=== PATIENT | male | born 1935 | race Caucasian/White ===

== ENCOUNTER → 2017-01-30 | Outpatient (REF) | payer MEDICARE ==
[~2017-01-30] MED LIST: ASPI81TA85 PO; MULTTAB12 PO
== END ==
LOC: M SFHCCLAY 09:30
PROVIDERS: ATTEND Family Medicine
DX: Z95.5 Presence of coronary angioplasty implant and graft (principal); C88.0 Waldenstrom macroglobulinemia; Z85.46 Personal history of malignant neoplasm of prostate; I34.0 Nonrheumatic mitral (valve) insufficiency; Z53.9 Procedure and treatment not carried out, unspecified reason

== ENCOUNTER → 2017-04-20 | Outpatient (REF) | payer MEDICARE ==
[~2017-04-20] MED LIST changes: +AMIO200T; +AMIO200T PO; +AMOX875T PO; +ATOR40TA75; +ATOR40TA75 PO; +CEPH500C PO; +CLOP75TA2; +FURO40TA2; +FURO40TA2 PO; +KEFL500C17; +PLAV1TAB2 PO; +SPIR25TA2; +SPIR25TA2 PO; +VITA100066 PO; +VITMTA PO; +XARE15TA; +XARE15TA PO
== END ==
LOC: M SFHCCLAY 10:33
PROVIDERS: ATTEND Family Medicine
DX: C85.19 Unspecified B-cell lymphoma, extranodal and solid organ sites (principal); I35.0 Nonrheumatic aortic (valve) stenosis; K64.4 Residual hemorrhoidal skin tags; I48.0 Paroxysmal atrial fibrillation; Z85.46 Personal history of malignant neoplasm of prostate
CPT/HCPCS: 82550; 84153; G0463

== ENCOUNTER 2017-06-01 15:37 | Inpatient (IN) | payer MEDICARE ==
[~2017-06-01] VITALS: Ht 177.8 cm; Wt 70.3 kg
[~2017-06-01 15:37] MED LIST changes: -AMIO200T; -AMIO200T PO; -AMOX875T PO; -ATOR40TA75; -ATOR40TA75 PO; -CEPH500C PO; -CLOP75TA2; -FURO40TA2; -FURO40TA2 PO; -KEFL500C17; -PLAV1TAB2 PO; -SPIR25TA2; -SPIR25TA2 PO; -VITA100066 PO; -VITMTA PO; -XARE15TA; -XARE15TA PO
[2017-06-01] MEDS ORDERED: SPIR25TA2 (15:57)
[2017-06-01] MEDS ORDERED: AMIO200T (15:57)
[2017-06-01] MEDS ORDERED: FURO40TA2 (15:57)
[2017-06-01] MEDS ORDERED: CLOP75TA2 (15:57)
[2017-06-01] MEDS ORDERED: XARE15TA (15:57)
[2017-06-01] MEDS ORDERED: ATOR40TA75 (15:57)
[2017-06-01] MEDS ORDERED: KEFL500C17 (15:57)
[2017-06-01] MEDS ORDERED: SODIUM CHLORIDE 0.9% INJ 10 ML SYR IV PRN (18:15)
--- NOTE | 2017-06-01 19:02 | REP ---
REASON: Swelling. COMPARISON: None. There are multiple hammertoe deformities. There is a large retrocalcaneal heel spur. The bones are demineralized. Degenerative change are seen throughout the foot. There is no evidence of an acute fracture. IMPRESSION: Chronic changes. Signed by Pablo Marcos DO 06/01/2017 07:18 P
[2017-06-01 19:03] LABS: BASO % 0.3 % (0.0-1.0); EOS # 0.1 10^3/uL (0.0-0.50); EOS % 0.7 % (0.0-3.0); IMMATURE GRANULOCYTE % 0.4 % (0-0); LYMPH # 0.7 10^3/uL (1.5-4.5); MEAN CORPUSCULAR HEMOGLOBIN 32.9 pg (27.0-33.0); MEAN CORPUSCULAR HGB CONC 35.8 g/dl (32.0-36.5); MEAN CORPUSCULAR VOLUME 91.8 fl (80.0-96.0); MONO # 0.8 10^3/uL (0.0-0.8); MONO % 7.7 % (0.0-5.0); NEUTROPHILS # 8.5 10^3/uL (1.8-7.7); NEUTROPHILS % 83.9 % (36.0-66.0); PLATELET COUNT, AUTOMATED 196 10^3/uL (150-450); RED CELL DISTRIBUTION WIDTH 12.7 % (11.5-14.5); WHITE BLOOD COUNT 10.1 10^3/uL (4.0-10.0)
[2017-06-01 19:31] LABS: ERYTHROCYTE SEDIMENTATION RATE 56 mm/hr (0-20)
[2017-06-01 19:49] LABS: ANION GAP 10 MEQ/L (8-16); BLOOD UREA NITROGEN 22 MG/DL (7-18); CALCIUM LEVEL 7.6 MG/DL (8.8-10.2); CARBON DIOXIDE LEVEL 22 MEQ/L (21-32); CHLORIDE LEVEL 106 MEQ/L (98-107); GLOMERULAR FILTRATION RATE > 60.0 (>35); GLUCOSE, FASTING 110 MG/DL (83-110); POTASSIUM SERUM 4.2 MEQ/L (3.5-5.1); SODIUM LEVEL 138 MEQ/L (136-145); URIC ACID 5.4 MG/DL (3.5-7.2)
[2017-06-01] MEDS ORDERED: VITA100066 PO (20:14)
[2017-06-01] MEDS ORDERED: SPIR25TA2 PO (20:14)
[2017-06-01] MEDS ORDERED: XARE15TA PO (20:14)
[2017-06-01] MEDS ORDERED: ATOR40TA75 PO (20:14)
[2017-06-01] MEDS ORDERED: FURO40TA2 PO (20:14)
[2017-06-01] MEDS ORDERED: AMIO200T PO (20:14)
[2017-06-01] MEDS ORDERED: VITMTA PO (20:14)
[2017-06-01] MEDS ORDERED: CEPH500C PO (20:14)
[2017-06-01] MEDS ORDERED: PLAV1TAB2 PO (20:14)
[2017-06-01] MEDS ORDERED: PIPERACILLIN/TAZOBACTAM SOD 3.375 GM in D5W 50 ML IV ONE (20:15)
[2017-06-01] MEDS ORDERED: VANCOMYCIN HCL 1,000 MG, VIAL MATE ADAPTER 1 EACH in D5W 250 ML IV ONE (20:15)
[2017-06-01] MEDS: HEPARIN SOD (PORCINE) 5000 UNITS/ML VIAL SC SCH (21:00)
[2017-06-01] MEDS ORDERED: PERCOCET 5MG/325MG TAB PO PRN (22:15)
[2017-06-01] MEDS ORDERED: PERCOCET 5MG/325MG TAB PO SCH (22:30)
[2017-06-01] MEDS ORDERED: VANCOMYCIN HCL IV SCH (22:45)
[2017-06-01] MEDS ORDERED: D5W IV SCH (22:45)
--- NOTE | 2017-06-01 23:06 | HPEPDOC ---
General Date of Admission 06-01-17 Chief Complaint The patient is a 82-year-old male admitted with a reason for visit of Skin Issue. 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 The pt states he was playing tennis a week ago and that one day after this, he noted some pain and swelling in his left foot, thinking he may have "twisted it" he soaked it in epsom salt and tried to minimize weight on the foot. Unfortunately the pain progressed and his foot progressively became hot and red, he was instructed to obtain an MRI from his physicians office and the results were negative for Osteomyelitis, he was given Keflex. The pain, progressive swelling and redness continued to worsen and thus he presented to the ED. He denies hx of fever, muscle ache or chills, no night sweats, abdominal pain, n/v, diarrhea/constipation nor blood in stool or urine, denies travel outside of the country recently and no recent sick contacts. He has no history of trauma to his left foot. Home Medications Scheduled Amiodarone HCl (Amiodarone HCl) 200 Mg Tab, 200 MG PO DAILY, (Reported) Atorvastatin Calcium (Atorvastatin Calcium) 40 Mg Tab, 40 MG PO QHS, (Reported) Cephalexin Monohydrate (Cephalexin) 500 Mg Cap, 500 MG PO QID, (Reported) FILLED 05/27/17 FOR 10 DAYS Cholecalciferol (Vitamin D) 1,000 Unit Tab, 1,000 UNIT PO DAILY, (Reported) Clopidogrel Bisulfate (Plavix) 75 Mg Tab, 75 MG PO DAILY, (Reported) Furosemide (Furosemide) 40 Mg Tab, 40 MG PO DAILY, (Reported) Multivitamins *[facility] STOCKED* (Thera M Plus *[facility] STOCKED*) 1 Tab Tab, 1 TAB PO DAILY, (Reported) Rivaroxaban (Xarelto) 15 Mg Tab, 15 MG PO QPM, (Reported) Spironolactone (Spironolactone) 25 Mg Tab, 12.5 MG PO BID, (Reported) Allergies Coded Allergies: No Known Allergies (Verified , 06/01/17) Past Medical History Medical History hx MV repair 2 months ago hx prostate ca. w/ mets to spine hx waldenstroms macroglobulinemia w/ mets to brain s/p chemo htn hyperlipidemia Surgical History MV repair Family History Significant Family History: No pertinent family hx Social History * Smoker: Denies Alcohol: Denies Drugs: denies Psychosocial History: No pertinent psych hx Review of Symptoms Constitutional: Reports: Malaise, Denies: Chills, Fever, Night Sweats, Weakness, Fatigue Eyes: Denies: Pain, Vision change, Conjunctivae inflammation Skin: Reports: Other (red, hot and swollen left foot), Denies: Rash, Lesions Pulmonary: Denies: Dyspnea, Cough Cardiovascular: Denies: Chest Pain, Palpitations Gastrointestinal: Denies: Nausea, Vomiting, Abdominal Pain, Diarrhea, Constipation, Melena, Hematochezia Genitourinary: Denies: Dysuria, Frequency Musculoskeletal: Reports: Foot Pain (left foot pain when he tries to walk) Neurological: Denies: Weakness, Numbness Psych: Reports: Mood Normal, Memory Issues Physical Examination General Exam: Positive: Cooperative, Mild Distress Eye Exam: Positive: Conjunctiva & lids normal, EOMI, Negative: Sclera icteric, Ptosis ENT Exam: Positive: Atraumatic Neck Exam: Positive: Supple Chest Exam: Positive: Clear to auscultation, Normal air movement, Negative: Rales, Rhonchi, Wheezing, Diminished Heart Exam: Positive: Rate Normal, Normal S1, Normal S2, Negative: Gallops, Murmurs, Rubs Abdomen Exam: Positive: Normal bowel sounds, Soft, Negative: Tenderness, Hepatospenomegaly, Mass Extremity Exam: Positive: Edema (+1 left foot), Normal pulses (b/l LE dorsalis pedis), Tenderness (left dorsum foot), Swelling (left dorsum foot), Negative: Clubbing, Cyanosis Skin Exam: Negative: Nl turgor and temperature (hot swollen dorsum left foot), Breakdown (no abrasion or cuts on left foot, no bruising or sign of trauma) Neuro Exam: Positive: Normal Speech Vital Signs Vital Signs Date Time Temp Pulse Resp B/P (MAP) Pulse Ox O2 Delivery O2 Flow Rate FiO2 10/6/17 19:33 06/01/17 15:37 98.0 69 16 100 Room Air Laboratory Data Labs 24H Laboratory Tests 2 06/01/17 18:44: Immature Granulocyte % (Auto) 0.4H, White Blood Count 10.1H, Red Blood Count 3.68L, Hemoglobin 12.1L, Hematocrit 33.8L, Mean Corpuscular Volume 91.8, Mean Corpuscular Hemoglobin 32.9, Mean Corpuscular Hemoglobin Concent 35.8, Red Cell Distribution Width 12.7, Platelet Count 196, Neutrophils (%) (Auto) 83.9H, Lymphocytes (%) (Auto) 7.0L, Monocytes (%) (Auto) 7.7H, Eosinophils (%) (Auto) 0.7, Basophils (%) (Auto) 0.3, Neutrophils # (Auto) 8.5H, Lymphocytes # (Auto) 0.7L, Monocytes # (Auto) 0.8, Eosinophils # (Auto) 0.1, Basophils # (Auto) 0.0, Immature Granulocyte # (Auto) 0.0, Nucleated Red Blood Cells % (auto) 0.0, Erythrocyte Sedimentation Rate 56H, Anion Gap 10, Glomerular Filtration Rate > 60.0, Uric Acid 5.4, Blood Urea Nitrogen 22H, Creatinine 1.10, Sodium Level 138 , Potassium Level 4.2, Chloride Level 106, Carbon Dioxide Level 22, Calcium Level 7.6L, C-Reactive Protein, Quantitative 6.94H CBC/BMP Laboratory Tests 06/01/17 18:44 Red Blood Count 3.68 L, Mean Corpuscular Volume 91.8, Mean Corpuscular Hemoglobin 32.9, Mean Corpuscular Hemoglobin Concent 35.8, Red Cell Distribution Width 12.7, Neutrophils (%) (Auto) 83.9 H, Lymphocytes (%) (Auto) 7.0 L, Monocytes (%) (Auto) 7.7 H, Eosinophils (%) (Auto) 0.7, Basophils (%) ( Auto) 0.3, Neutrophils # (Auto) 8.5 H, Lymphocytes # (Auto) 0.7 L, Monocytes # ( Auto) 0.8, Eosinophils # (Auto) 0.1, Basophils # (Auto) 0.0, Calcium Level 7.6 L Microbiology Microbiology 06/01/17 Blood Culture, Received Pending 06/01/17 Blood Culture, Received Pending Problems (1) Cellulitis of foot Status: Acute Response to Treatment: Stable Problem Text: will repeat MRI of left foot wbc 10.1 afebrile blood cx pending pt received vanco and zosyn in ED, will c/w inpt. CRP 6.94 pain control percocet PT ordered to eval and treat (2) Hx of mitral valve repair Status: Chronic Response to Treatment: Stable Problem Text: c/w xarelto and plavix home meds (3) Hyperlipidemia Status: Chronic Response to Treatment: Stable Problem Text: c/w home meds (4) DVT prophylaxis Status: Acute Response to Treatment: Stable Problem Text: pt receiving xarelto plavix Plan / VTE VTE Prophylaxis Ordered?: Yes GME ATTESTATION GME ATTESTATION My preceptor for this patient encounter was physically present in the building during the encounter and was fully available. As needed, all aspects of the patient interview, examination, medical decision making process, and medical care plan development were reviewed and approved by the preceptor. Preceptor is aware and concurs with the plan as stated in the body of this note and will attest to such by his/her cosignature. RACHEL PITTMAN DO Jun 01, 2017 23:06
[2017-06-02 01:40] VITALS: BP 119/66
[2017-06-02] MEDS: PIPERACILLIN/TAZOBACTAM SOD 3.375 GM in D5W 50 ML IV SCH ×4 (02:07→21:06)
[2017-06-02] MEDS: SPIRONOLACTONE 12.5MG PER 1/2 TABLET PO SCH ×3 (02:08→21:07)
[2017-06-02] MEDS: ATORVASTATIN 20 MG TAB PO SCH ×2 (02:08→21:07)
[2017-06-02] MEDS: RIVAROXABAN 15 MG TAB (XARELTO) PO SCH ×2 (02:08→21:08)
--- NOTE | 2017-06-02 05:12 | PHACANCOPD ---
PHARMACY VANCOMYCIN DOSING Pt Demographics Demographics Patient Age:82 , Weight:70.300 , Gender: male Adjusted Body Weight Date: 06/02/17, Adjusted Body Weight: [68.2] KgACTUAL WEIGHT Vancomycin Vancomycin indication: CELLULITIS Vancomycin Target Ranges: 10-20 mcg/ml Vancomycin Load Y/N: No Load Dose Date Time Vancomycin Load Dose: Date: Time: Vancomycin Dose Date: 06/02/17. Current Vancomycin Dose: [1 GM@21,THEN Q24@10] Intermittent Dosing?: No Labs Labs Laboratory Tests 06/01/17 18:44 Red Blood Count 3.68 L, Mean Corpuscular Volume 91.8, Mean Corpuscular Hemoglobin 32.9, Mean Corpuscular Hemoglobin Concent 35.8, Red Cell Distribution Width 12.7, Neutrophils (%) (Auto) 83.9 H, Lymphocytes (%) (Auto) 7.0 L, Monocytes (%) (Auto) 7.7 H, Eosinophils (%) (Auto) 0.7, Basophils (%) ( Auto) 0.3, Neutrophils # (Auto) 8.5 H, Lymphocytes # (Auto) 0.7 L, Monocytes # ( Auto) 0.8, Eosinophils # (Auto) 0.1, Basophils # (Auto) 0.0, Calcium Level 7.6 L Micro Microbiology 06/01/17 Blood Culture, Received Pending 06/01/17 Blood Culture, Received Pending Creatinine Clearance Date:06/02/17. Creatinine Clearance: [49.9].CALCULATED Pending Labs VENCOMYCIN TROUGH DUE 06/03@0900 Assessment and Plan Maintaining Current Dose?: Yes Reason for dose change: No Dose Change Pharmacist Note Pharmacist Note Date: 06/02/17. Pharmacist note:82YOM NKDA,TREATING CELLULITIS WITH PIP/TAZO 3.375GM IV Q6H AND VANCOMYCIN PER PHARMACY CONSULT.SCR:1.1,CRCL=49.9(CALCULATED) .RECEIVED VANCO 1 GRAM IN ED@2100-WILL BEGIN REGIMEN OF 1 GRAM IV [id number] @ 1000.FIRST TROUGH SCHEDULED FOR 06/03@0900.WILL CONTINUE TO FOLLOW LEVELS AND LABS.+ [facility] Jun 02, 2017 05:12
[2017-06-02 06:00] VITALS: BP 111/63
[2017-06-02 07:06] LABS: BASO % 0.2 % (0.0-1.0); EOS # 0.1 10^3/uL (0.0-0.50); EOS % 1.5 % (0.0-3.0); IMMATURE GRANULOCYTE % 0.4 % (0-0); LYMPH # 0.6 10^3/uL (1.5-4.5); LYMPH % 7.2 % (24.0-44.0); MEAN CORPUSCULAR HEMOGLOBIN 31.8 pg (27.0-33.0); MEAN CORPUSCULAR HGB CONC 35.1 g/dl (32.0-36.5); MEAN CORPUSCULAR VOLUME 90.6 fl (80.0-96.0); MONO # 0.7 10^3/uL (0.0-0.8); MONO % 8.5 % (0.0-5.0); NEUTROPHILS # 6.7 10^3/uL (1.8-7.7); NEUTROPHILS % 82.2 % (36.0-66.0); PLATELET COUNT, AUTOMATED 181 10^3/uL (150-450); RED CELL DISTRIBUTION WIDTH 12.6 % (11.5-14.5); WHITE BLOOD COUNT 8.1 10^3/uL (4.0-10.0)
[2017-06-02 07:45] LABS: ANION GAP 8 MEQ/L (8-16); BLOOD UREA NITROGEN 20 MG/DL (7-18); CALCIUM LEVEL 7.7 MG/DL (8.8-10.2); CARBON DIOXIDE LEVEL 24 MEQ/L (21-32); CHLORIDE LEVEL 106 MEQ/L (98-107); CREATININE FOR GFR 0.98 MG/DL (0.70-1.30); GLOMERULAR FILTRATION RATE > 60.0 (>35); GLUCOSE, FASTING 98 MG/DL (83-110); POTASSIUM SERUM 3.7 MEQ/L (3.5-5.1); SODIUM LEVEL 138 MEQ/L (136-145)
[2017-06-02] MEDS: HEPARIN SOD (PORCINE) 5000 UNITS/ML VIAL SC SCH ×2 (09:00→21:00)
[2017-06-02] MEDS ORDERED: PROHANCE 279.3MG/ML 15ML VIAL (A9576) As Ordered ONE (09:49)
[2017-06-02] MEDS: VANCOMYCIN HCL 1,000 MG, VIAL MATE ADAPTER 1 EACH in D5W 250 ML IV SCH (11:47)
[2017-06-02] MEDS: FUROSEMIDE 40 MG TAB PO SCH (11:49)
[2017-06-02] MEDS: CLOPIDOGREL 75 MG TAB PO SCH (11:49)
[2017-06-02] MEDS: MULTIVITAMINS/MINERALS THERAP 1 TAB PO SCH (11:49)
[2017-06-02] MEDS: AMIODARONE 200 MG TAB (PACERONE) PO SCH (11:49)
[2017-06-02 14:00] VITALS: BP 119/59
--- NOTE | 2017-06-02 14:47 | REP ---
LEFT FOOT MRI: REASON: Assess for osteomyelitis. The patient has swelling. There are no priors for comparison. Gadolinium utilized: Undisclosed. There is diffuse T1 and T2 prolongation seen throughout all soft tissues. Degenerative change is seen throughout the foot. All imaged flexor and extensor tendons are intact and of normal appearing low signal throughout. Seen in the base of the 3rd metatarsal, there is a tiny 6 mm size focus of T2 hypersignal which enhancing slightly after the administration of intravenous contrast. The cortical and marrow signal seen throughout the remainder of the examination is within normal limits. There are a few degenerative cysts seen in the heads of the 2nd and 3rd metatarsals. IMPRESSION: 1. There is a single enhancing focus seen in the base of the 3rd metatarsal which is unlikely to represent a focus of osteomyelitis. The exact etiology of this is uncertain, however, it likely represents chronic change. 2. There are degenerative changes seen throughout the foot. 3. There is diffuse soft tissue edema which needs to be correlated clinically.? Signed by Pablo Marcos DO 06/02/2017 02:59 P
--- NOTE | 2017-06-02 23:39 | IPNPDOC ---
Subjective Date Seen The patient was seen on 06/02/17. Subjective Chief Complaint/HPI The patient is a 82-year-old male admitted with a reason for visit of suspected cellulitis. Events since last encounter Mr. Garsia reports that his left foot is still painful. He states that over the day the symptoms and even characteristics of his skin (particularly the erythema) have fluctuated. When he has elevated on the bed he reports that the pain is only 1-2/10. But when he tries to stand or pressure on it it rises to 8- 9/10. General: Reports: Normal Appetite Constitutional: Denies: Chills, Fever Pulmonary: Denies: Cough Cardiovascular: Denies: Chest Pain Genitourinary: Denies: Dysuria Musculoskeletal: Reports: Foot Pain Psych: Reports: Mood Normal Objective Physical Examination General Exam: Positive: Alert, Cooperative, No Acute Distress Eye Exam: Positive: Conjunctiva & lids normal, EOMI, Negative: Sclera icteric ENT Exam: Positive: Atraumatic, Mucous membr. moist/pink Neck Exam: Positive: Supple, Negative: Lymphadenopathy Chest Exam: Positive: Clear to auscultation, Normal air movement Heart Exam: Positive: Rate Normal, Normal S1, Normal S2, Murmurs (there is a soft 2/6 blowing midsystolic murmur noted at the left lower sternal border), Negative: Gallops, Rubs Abdomen Exam: Positive: Normal bowel sounds, Soft, Negative: Tenderness Extremity Exam: Positive: Tenderness (left dorsum foot), Swelling (left dorsum foot - this remains within the marked margins), Other (there is erythema was marked margins on the left foot. It is most intense over the lateral MTP joints. ) Neuro Exam: Positive: Normal Speech Psych Exam: Positive: Mood NL, Oriented x 3 Assessment /Plan Problems (1) Cellulitis of foot Status: Acute Response to Treatment: Stable, Improving Discussed With: Patient Problem Text: The MRI of his left foot with contrast did not show any specific concerning abnormalities. His white count dropped from 10.1 to 8.1 on the vancomycin and Zosyn. His ESR and CRP are up. This makes me wonder if there is anything else inflammatory going on. I'm ordering a uric acid level to see whether gout is a possibility. (2) Hx of mitral valve repair Status: Chronic Response to Treatment: Stable Problem Text: c/w xarelto and plavix home meds (3) Hyperlipidemia Status: Chronic Response to Treatment: Stable Problem Text: c/w home meds (4) DVT prophylaxis Status: Acute Response to Treatment: Stable Problem Text: pt receiving xarelto plavix Plan/VTE VTE Prophylaxis Ordered?: Yes VS, I&O, 24H, Fishbone Vital Signs/I&O Vital Signs Date Time Temp Pulse Resp B/P (MAP) Pulse Ox O2 Delivery O2 Flow Rate FiO2 06/02/17 14:00 98.1 60 18 119/59 (79) 98 Room Air I&O- Last 24 Hours up to 6 AM 06/03/17 06:00 Intake Total 1910 ml Output Total 1950 ml Balance -40 ml Laboratory Data 24H LABS Laboratory Tests 2 06/02/17 06:55: Immature Granulocyte % (Auto) 0.4H, White Blood Count 8.1, Red Blood Count 3.52L , Hemoglobin 11.2L, Hematocrit 31.9L, Mean Corpuscular Volume 90.6, Mean Corpuscular Hemoglobin 31.8, Mean Corpuscular Hemoglobin Concent 35.1, Red Cell Distribution Width 12.6, Platelet Count 181, Neutrophils (%) (Auto) 82.2H, Lymphocytes (%) (Auto) 7.2L, Monocytes (%) (Auto) 8.5H, Eosinophils (%) (Auto) 1.5, Basophils (%) (Auto) 0.2, Neutrophils # (Auto) 6.7, Lymphocytes # (Auto) 0.6L, Monocytes # (Auto) 0.7, Eosinophils # (Auto) 0.1, Basophils # (Auto) 0.0, Immature Granulocyte # (Auto) 0.0, Nucleated Red Blood Cells % (auto) 0.0, Anion Gap 8, Glomerular Filtration Rate > 60.0, Blood Urea Nitrogen 20H, Creatinine 0.98, Sodium Level 138, Potassium Level 3.7, Chloride Level 106, Carbon Dioxide Level 24, Calcium Level 7.7L CBC/BMP Laboratory Tests 06/02/17 06:55 Red Blood Count 3.52 L, Mean Corpuscular Volume 90.6, Mean Corpuscular Hemoglobin 31.8, Mean Corpuscular Hemoglobin Concent 35.1, Red Cell Distribution Width 12.6, Neutrophils (%) (Auto) 82.2 H, Lymphocytes (%) (Auto) 7.2 L, Monocytes (%) (Auto) 8.5 H, Eosinophils (%) (Auto) 1.5, Basophils (%) ( Auto) 0.2, Neutrophils # (Auto) 6.7, Lymphocytes # (Auto) 0.6 L, Monocytes # ( Auto) 0.7, Eosinophils # (Auto) 0.1, Basophils # (Auto) 0.0, Calcium Level 7.7 L Microbiology Microbiology 06/01/17 Blood Culture - Preliminary, Resulted No growth after 24 hours . All specim... 06/01/17 Blood Culture - Preliminary, Resulted No growth after 24 hours . All specim... Bill Forman MD Jun 02, 2017 23:39
[2017-06-03] MEDS: PIPERACILLIN/TAZOBACTAM SOD 3.375 GM in D5W 50 ML IV SCH ×4 (03:15→21:30)
[2017-06-03 06:00] VITALS: BP 134/70
[2017-06-03] MEDS: FUROSEMIDE 40 MG TAB PO SCH ×2 (09:00→09:14)
[2017-06-03] MEDS: CLOPIDOGREL 75 MG TAB PO SCH (09:14)
[2017-06-03] MEDS: AMIODARONE 200 MG TAB (PACERONE) PO SCH (09:14)
[2017-06-03] MEDS: MULTIVITAMINS/MINERALS THERAP 1 TAB PO SCH (09:14)
[2017-06-03] MEDS: SPIRONOLACTONE 12.5MG PER 1/2 TABLET PO SCH ×2 (09:14→21:30)
[2017-06-03] MEDS: VANCOMYCIN HCL 1,000 MG, VIAL MATE ADAPTER 1 EACH in D5W 250 ML IV SCH (10:56)
[2017-06-03 11:54] LABS: BASO % 0.1 % (0.0-1.0); EOS # 0.1 10^3/uL (0.0-0.50); EOS % 1.1 % (0.0-3.0); IMMATURE GRANULOCYTE % 0.4 % (0-0); LYMPH # 0.6 10^3/uL (1.5-4.5); LYMPH % 7.3 % (24.0-44.0); MEAN CORPUSCULAR HEMOGLOBIN 31.9 pg (27.0-33.0); MEAN CORPUSCULAR HGB CONC 34.6 g/dl (32.0-36.5); MEAN CORPUSCULAR VOLUME 92.4 fl (80.0-96.0); MONO # 0.6 10^3/uL (0.0-0.8); MONO % 6.9 % (0.0-5.0); NEUTROPHILS # 6.8 10^3/uL (1.8-7.7); NEUTROPHILS % 84.2 % (36.0-66.0); PLATELET COUNT, AUTOMATED 211 10^3/uL (150-450); RED CELL DISTRIBUTION WIDTH 12.5 % (11.5-14.5); WHITE BLOOD COUNT 8.1 10^3/uL (4.0-10.0)
[2017-06-03 12:00] LABS: ADD MANUAL DIFFER NO; DIFF SLIDE NUMBER 52
[2017-06-03 12:17] LABS: ERYTHROCYTE SEDIMENTATION RATE 56 mm/hr (0-20)
[2017-06-03 12:23] LABS: CALCIUM LEVEL 8.7 MG/DL (8.8-10.2); CREATININE FOR GFR 1.31 MG/DL (0.70-1.30); GLOMERULAR FILTRATION RATE 55.8 (>35); POTASSIUM SERUM 3.9 MEQ/L (3.5-5.1); URIC ACID 4.2 MG/DL (3.5-7.2)
[2017-06-03 14:00] VITALS: BP 130/72
--- NOTE | 2017-06-03 15:06 | IPNPDOC ---
Subjective Date Seen The patient was seen on 06/03/17. Subjective Chief Complaint/HPI The patient is a 82-year-old male admitted with a reason for visit of suspected cellulitis. Events since last encounter His foot feels a little better today. He reports he's been working hard to keep it elevated per my instructions. Nursing confirms this. However, he again notes that there is a substantial increase in the rubor and pain when the limb is dependent. Constitutional: Denies: Chills, Fever ENT: Denies: Head Aches Pulmonary: Denies: Dyspnea, Cough Cardiovascular: Denies: Chest Pain, Palpitations Gastrointestinal: Denies: Nausea, Vomiting Psych: Reports: Mood Normal Objective Physical Examination General Exam: Positive: Alert, Cooperative, No Acute Distress Eye Exam: Positive: Conjunctiva & lids normal, Negative: Sclera icteric ENT Exam: Positive: Mucous membr. moist/pink Neck Exam: Positive: Supple, Negative: Lymphadenopathy Chest Exam: Positive: Clear to auscultation, Normal air movement Heart Exam: Positive: Rate Normal, Normal S1, Normal S2, Murmurs (there is a soft 2/6 blowing midsystolic murmur noted at the left lower sternal border), Negative: Gallops, Rubs Abdomen Exam: Positive: Normal bowel sounds, Soft, Negative: Tenderness Extremity Exam: Positive: Tenderness (left dorsum foot), Swelling (left dorsum foot - this is now receding from the marked margins), Other (the erythema remains within marked margins on the left foot; overall it's fading. It remains most intense over the lateral MTP joints.) Neuro Exam: Positive: Normal Speech Psych Exam: Positive: Mood NL, Oriented x 3 Assessment /Plan Problems (1) Cellulitis of foot Status: Resolved Response to Treatment: Stable, Improving Discussed With: Patient Problem Text: His white count stayed stable at 8.1 on the vancomycin and Zosyn. His inflammatory markers are now down. The uric acid level speaks against a gouty flare. (2) Hx of mitral valve repair Status: Chronic Response to Treatment: Stable Problem Text: c/w xarelto and plavix home meds (3) Hyperlipidemia Status: Chronic Response to Treatment: Stable Problem Text: c/w home meds (4) DVT prophylaxis Status: Acute Response to Treatment: Stable Problem Text: pt receiving xarelto plavix Plan/VTE VTE Prophylaxis Ordered?: Yes VS, [facility]O, [facility]O Vital Signs Date Time Temp Pulse Resp B/P (MAP) Pulse Ox O2 Delivery O2 Flow Rate FiO2 06/03/17 14:00 98.2 58 18 130/72 (91) 99 Room Air I&O- Last 24 Hours up to 6 AM 06/04/17 06:00 Intake Total 660 ml Output Total 400 ml Balance 260 ml Laboratory Data 24H LABS Laboratory Tests 2 06/03/17 11:43: Immature Granulocyte % (Auto) 0.4H, White Blood Count 8.1, Red Blood Count 4.07L , Hemoglobin 13.0L, Hematocrit 37.6L, Mean Corpuscular Volume 92.4, Mean Corpuscular Hemoglobin 31.9, Mean Corpuscular Hemoglobin Concent 34.6, Red Cell Distribution Width 12.5, Platelet Count 211, Neutrophils (%) (Auto) 84.2H, Lymphocytes (%) (Auto) 7.3L, Monocytes (%) (Auto) 6.9H, Eosinophils (%) (Auto) 1.1, Basophils (%) (Auto) 0.1, Neutrophils # (Auto) 6.8, Lymphocytes # (Auto) 0.6L, Monocytes # (Auto) 0.6, Eosinophils # (Auto) 0.1, Basophils # (Auto) 0.0, Immature Granulocyte # (Auto) 0.0, Nucleated Red Blood Cells % (auto) 0.0, Erythrocyte Sedimentation Rate 56H, Anion Gap 9, Glomerular Filtration Rate 55.8 , Uric Acid 4.2, Blood Urea Nitrogen 22H, Creatinine 1.31H, Sodium Level 135L, Potassium Level 3.9, Chloride Level 103, Carbon Dioxide Level 23, Calcium Level 8.7L, C-Reactive Protein, Quantitative 5.36H CBC/BMP Laboratory Tests 06/03/17 11:43 Red Blood Count 4.07 L, Mean Corpuscular Volume 92.4, Mean Corpuscular Hemoglobin 31.9, Mean Corpuscular Hemoglobin Concent 34.6, Red Cell Distribution Width 12.5, Neutrophils (%) (Auto) 84.2 H, Lymphocytes (%) (Auto) 7.3 L, Monocytes (%) (Auto) 6.9 H, Eosinophils (%) (Auto) 1.1, Basophils (%) ( Auto) 0.1, Neutrophils # (Auto) 6.8, Lymphocytes # (Auto) 0.6 L, Monocytes # ( Auto) 0.6, Eosinophils # (Auto) 0.1, Basophils # (Auto) 0.0, Calcium Level 8.7 L Microbiology Microbiology 06/01/17 Blood Culture - Preliminary, Resulted No growth after 24 hours . All specim... 06/01/17 Blood Culture - Preliminary, Resulted No growth after 24 hours . All specim... Bill Forman MD Jun 03, 2017 15:06
[2017-06-03] MEDS: NS 1,000 ML IV SCH (17:10)
[2017-06-03] MEDS: ATORVASTATIN 20 MG TAB PO SCH (21:29)
[2017-06-03] MEDS: RIVAROXABAN 15 MG TAB (XARELTO) PO SCH (21:29)
[2017-06-03 22:00] VITALS: BP 114/62
[2017-06-04] MEDS: PIPERACILLIN/TAZOBACTAM SOD 3.375 GM in D5W 50 ML IV SCH ×4 (03:22→20:08)
[2017-06-04 04:50] VITALS: BP 126/66
[2017-06-04 06:16] LABS: BASO % 0.2 % (0.0-1.0); EOS # 0.2 10^3/uL (0.0-0.50); EOS % 1.8 % (0.0-3.0); IMMATURE GRANULOCYTE % 0.5 % (0-0); LYMPH # 0.6 10^3/uL (1.5-4.5); LYMPH % 7.2 % (24.0-44.0); MEAN CORPUSCULAR HEMOGLOBIN 32.4 pg (27.0-33.0); MEAN CORPUSCULAR HGB CONC 35.8 g/dl (32.0-36.5); MEAN CORPUSCULAR VOLUME 90.4 fl (80.0-96.0); MONO # 0.7 10^3/uL (0.0-0.8); MONO % 8.3 % (0.0-5.0); NEUTROPHILS # 7.1 10^3/uL (1.8-7.7); PLATELET COUNT, AUTOMATED 201 10^3/uL (150-450); RED CELL DISTRIBUTION WIDTH 12.4 % (11.5-14.5); WHITE BLOOD COUNT 8.7 10^3/uL (4.0-10.0)
[2017-06-04 06:42] LABS: ANION GAP 8 MEQ/L (8-16); BLOOD UREA NITROGEN 19 MG/DL (7-18); CALCIUM LEVEL 7.8 MG/DL (8.8-10.2); CARBON DIOXIDE LEVEL 24 MEQ/L (21-32); CHLORIDE LEVEL 107 MEQ/L (98-107); CREATININE FOR GFR 1.03 MG/DL (0.70-1.30); GLOMERULAR FILTRATION RATE > 60.0 (>35); GLUCOSE, FASTING 117 MG/DL (83-110); POTASSIUM SERUM 3.7 MEQ/L (3.5-5.1); SODIUM LEVEL 139 MEQ/L (136-145)
[2017-06-04] MEDS: NS 1,000 ML IV SCH ×2 (08:16→18:40)
[2017-06-04] MEDS: FUROSEMIDE 40 MG TAB PO SCH (09:00)
[2017-06-04] MEDS: SPIRONOLACTONE 12.5MG PER 1/2 TABLET PO SCH ×2 (09:21→20:08)
[2017-06-04] MEDS: AMIODARONE 200 MG TAB (PACERONE) PO SCH (09:21)
[2017-06-04] MEDS: CLOPIDOGREL 75 MG TAB PO SCH (09:22)
[2017-06-04] MEDS: MULTIVITAMINS/MINERALS THERAP 1 TAB PO SCH (09:22)
[2017-06-04] MEDS: VANCOMYCIN HCL 1,000 MG, VIAL MATE ADAPTER 1 EACH in D5W 250 ML IV SCH (11:02)
[2017-06-04 14:00] VITALS: BP 137/73
[2017-06-04] MEDS: ATORVASTATIN 20 MG TAB PO SCH (20:08)
[2017-06-04] MEDS: RIVAROXABAN 15 MG TAB (XARELTO) PO SCH (20:08)
[2017-06-04 22:00] VITALS: BP 130/70
--- NOTE | 2017-06-05 02:43 | IPNPDOC ---
Subjective Date Seen The patient was seen on 06/04/17. Subjective Chief Complaint/HPI The patient is a 82-year-old male admitted with a reason for visit of Skin Issue. Events since last encounter Patient complains of persistent foot discomfort when he attempts to ambulate. He doesn't want to take pain medication for it, and instead doesn't want to walk on his foot until it doesn't hurt. He notes that when his affected foot is dependent, it turns red quickly and swells. When he is in bed, the swelling and erythema are much better. He does still have some erythema along the medial malleolus, but otherwise it is better. Constitutional: Denies: Chills, Fever Pulmonary: Denies: Dyspnea, Cough Cardiovascular: Denies: Chest Pain Gastrointestinal: Denies: Nausea, Vomiting, Diarrhea, Constipation Musculoskeletal: Reports: Foot Pain Objective Physical Examination General Exam: Positive: Alert, Cooperative, No Acute Distress Eye Exam: Positive: Conjunctiva & lids normal, EOMI, Negative: Sclera icteric ENT Exam: Positive: Atraumatic, Mucous membr. moist/pink Neck Exam: Positive: Supple, Negative: Lymphadenopathy Chest Exam: Positive: Clear to auscultation, Normal air movement Heart Exam: Positive: Rate Normal, Normal S1, Normal S2, Murmurs (there is a soft 2/6 blowing midsystolic murmur noted at the left lower sternal border), Negative: Gallops, Rubs Abdomen Exam: Positive: Normal bowel sounds, Soft, Negative: Tenderness Extremity Exam: Positive: Tenderness (left dorsum foot), Swelling (largely resolving), Other (there is erythema was marked margins on the left foot, largely improved) Neuro Exam: Positive: Normal Speech Psych Exam: Positive: Mood NL, Oriented x 3 Assessment /Plan Problems (1) Cellulitis of foot Status: Resolved Response to Treatment: Stable, Improving Discussed With: Patient Problem Text: 06/04 -- Clinically appears to be resolving. Continue antibiotics. Encouraged patient to wear compression stocking to see if this helps with foot discomfort. Also encouraged him to try pain medication. If he can not ambulate and care for himself, he can not be discharged, and he will only grow more deconditioned. The MRI of his left foot with contrast did not show any specific concerning abnormalities. His white count dropped from 10.1 to 8.1 on the vancomycin and Zosyn. His ESR and CRP are up. This makes me wonder if there is anything else inflammatory going on. I'm ordering a uric acid level to see whether gout is a possibility. (2) Hx of mitral valve repair Status: Chronic Response to Treatment: Stable Problem Text: c/w xarelto and plavix home meds (3) Hyperlipidemia Status: Chronic Response to Treatment: Stable Problem Text: c/w home meds (4) DVT prophylaxis Status: Acute Response to Treatment: Stable Problem Text: pt receiving xarelto plavix Plan/VTE VTE Prophylaxis Ordered?: Yes VS, I&O, 24H, Fishbone Vital Signs/I&O Vital Signs Date Time Temp Pulse Resp B/P (MAP) Pulse Ox O2 Delivery O2 Flow Rate FiO2 06/04/17 14:00 97.4 60 18 137/73 (94) 97 Room Air Laboratory Data 24H LABS Laboratory Tests 2 06/04/17 06:08: Immature Granulocyte % (Auto) 0.5H, White Blood Count 8.7, Red Blood Count 3.55L , Hemoglobin 11.5L, Hematocrit 32.1L, Mean Corpuscular Volume 90.4, Mean Corpuscular Hemoglobin 32.4, Mean Corpuscular Hemoglobin Concent 35.8, Red Cell Distribution Width 12.4, Platelet Count 201, Neutrophils (%) (Auto) 82.0H, Lymphocytes (%) (Auto) 7.2L, Monocytes (%) (Auto) 8.3H, Eosinophils (%) (Auto) 1.8, Basophils (%) (Auto) 0.2, Neutrophils # (Auto) 7.1, Lymphocytes # (Auto) 0.6L, Monocytes # (Auto) 0.7, Eosinophils # (Auto) 0.2, Basophils # (Auto) 0.0, Immature Granulocyte # (Auto) 0.0, Nucleated Red Blood Cells % (auto) 0.0, Anion Gap 8, Glomerular Filtration Rate > 60.0, Blood Urea Nitrogen 19H, Creatinine 1.03, Sodium Level 139, Potassium Level 3.7, Chloride Level 107, Carbon Dioxide Level 24, Calcium Level 7.8L 06/04/17 09:24: Vancomycin Level Trough 9.1L 06/04/17 20:35: Bedside Glucose (Misc Panel) 127H CBC/BMP Laboratory Tests 06/04/17 06:08 Red Blood Count 3.55 L, Mean Corpuscular Volume 90.4, Mean Corpuscular Hemoglobin 32.4, Mean Corpuscular Hemoglobin Concent 35.8, Red Cell Distribution Width 12.4, Neutrophils (%) (Auto) 82.0 H, Lymphocytes (%) (Auto) 7.2 L, Monocytes (%) (Auto) 8.3 H, Eosinophils (%) (Auto) 1.8, Basophils (%) ( Auto) 0.2, Neutrophils # (Auto) 7.1, Lymphocytes # (Auto) 0.6 L, Monocytes # ( Auto) 0.7, Eosinophils # (Auto) 0.2, Basophils # (Auto) 0.0, Calcium Level 7.8 L Microbiology Microbiology 06/01/17 Blood Culture - Preliminary, Resulted No Growth after 72 hours. All specime... 06/01/17 Blood Culture - Preliminary, Resulted No Growth after 72 hours. All specime... PAYTON AYERS DO Jun 05, 2017 02:43
[2017-06-05] MEDS: PIPERACILLIN/TAZOBACTAM SOD 3.375 GM in D5W 50 ML IV SCH ×3 (02:51→15:09)
[2017-06-05 06:00] VITALS: BP 132/64
[2017-06-05] MEDS: NS 1,000 ML IV SCH (08:00)
[2017-06-05] MEDS: FUROSEMIDE 40 MG TAB PO SCH (08:48)
[2017-06-05] MEDS: CLOPIDOGREL 75 MG TAB PO SCH (08:48)
[2017-06-05] MEDS: SPIRONOLACTONE 12.5MG PER 1/2 TABLET PO SCH ×2 (08:48→20:50)
[2017-06-05] MEDS: MULTIVITAMINS/MINERALS THERAP 1 TAB PO SCH (08:48)
[2017-06-05] MEDS: AMIODARONE 200 MG TAB (PACERONE) PO SCH (08:48)
[2017-06-05] MEDS: VANCOMYCIN HCL 1,000 MG, VIAL MATE ADAPTER 1 EACH in D5W 250 ML IV SCH (10:09)
[2017-06-05 11:40] LABS: BASO % 0.2 % (0.0-1.0); EOS # 0.1 10^3/uL (0.0-0.50); EOS % 1.5 % (0.0-3.0); IMMATURE GRANULOCYTE % 0.3 % (0-0); LYMPH # 0.5 10^3/uL (1.5-4.5); LYMPH % 6.1 % (24.0-44.0); MEAN CORPUSCULAR HEMOGLOBIN 31.5 pg (27.0-33.0); MEAN CORPUSCULAR HGB CONC 34.9 g/dl (32.0-36.5); MEAN CORPUSCULAR VOLUME 90.2 fl (80.0-96.0); MONO # 0.5 10^3/uL (0.0-0.8); MONO % 6.1 % (0.0-5.0); NEUTROPHILS # 7.6 10^3/uL (1.8-7.7); NEUTROPHILS % 85.8 % (36.0-66.0); PLATELET COUNT, AUTOMATED 215 10^3/uL (150-450); RED CELL DISTRIBUTION WIDTH 12.4 % (11.5-14.5); WHITE BLOOD COUNT 8.9 10^3/uL (4.0-10.0)
[2017-06-05 12:30] LABS: ANION GAP 10 MEQ/L (8-16); BLOOD UREA NITROGEN 14 MG/DL (7-18); CALCIUM LEVEL 7.4 MG/DL (8.8-10.2); CARBON DIOXIDE LEVEL 22 MEQ/L (21-32); CHLORIDE LEVEL 107 MEQ/L (98-107); GLOMERULAR FILTRATION RATE > 60.0 (>35); GLUCOSE, FASTING 205 MG/DL (83-110); POTASSIUM SERUM 3.8 MEQ/L (3.5-5.1); SODIUM LEVEL 139 MEQ/L (136-145)
[2017-06-05 14:00] VITALS: BP 129/74
[2017-06-05] MEDS: ATORVASTATIN 20 MG TAB PO SCH (20:50)
[2017-06-05] MEDS: DOXYCYCLINE HYCLATE 100 MG TAB PO SCH (20:50)
[2017-06-05] MEDS: RIVAROXABAN 15 MG TAB (XARELTO) PO SCH (20:50)
[2017-06-05 22:00] VITALS: BP 121/67
--- NOTE | 2017-06-06 00:03 | IPNPDOC ---
Subjective Date Seen The patient was seen on 06/05/17. Subjective Chief Complaint/HPI The patient is a 82-year-old male admitted with a reason for visit of cellulitis. Events since last encounter Patient continues to avoid ambulation, as keeping his L leg dependent is uncomfortable. He declines pain medication, and has not used the compression stocking. PT provided a walker to help assist him to the bathroom. Discussed bruised appearing area on R medial malleolus, and he recalls minor injury a few days back. Constitutional: Denies: Chills, Fever, Malaise Cardiovascular: Denies: Chest Pain Gastrointestinal: Denies: Nausea, Vomiting, Diarrhea, Constipation Musculoskeletal: Reports: Foot Pain Objective Physical Examination General Exam: Positive: Alert, Cooperative, No Acute Distress Eye Exam: Positive: Conjunctiva & lids normal, EOMI, Negative: Sclera icteric ENT Exam: Positive: Atraumatic, Mucous membr. moist/pink Neck Exam: Positive: Supple, Negative: Lymphadenopathy Chest Exam: Positive: Clear to auscultation, Normal air movement Heart Exam: Positive: Rate Normal, Normal S1, Normal S2, Murmurs (there is a soft 2/6 blowing midsystolic murmur noted at the left lower sternal border), Negative: Gallops, Rubs Abdomen Exam: Positive: Normal bowel sounds, Soft, Negative: Tenderness Extremity Exam: Positive: Tenderness (left dorsum foot), Swelling (largely resolving), Other (margins of erythema on L foot show previous boundaries, all but resolved now) Skin Exam: Positive: Other skin issue (ecchymoses R medial malleolus) Neuro Exam: Positive: Normal Speech Psych Exam: Positive: Mood NL, Oriented x 3 Assessment /Plan Problems (1) Cellulitis of foot Status: Acute Response to Treatment: Stable, Improving Discussed With: Patient Problem Text: 06/05 -- briefly reviewed the risks of deconditioning. Encouraged to try medication or compression stockings to allow ambulation with less discomfort. Possibly he may benefit in the future from a vascular procedure, but current infection needs to have resolved. Switched to doxycycline. 06/04 -- Clinically appears to be resolving. Continue antibiotics. Encouraged patient to wear compression stocking to see if this helps with foot discomfort. Also encouraged him to try pain medication. If he can not ambulate and care for himself, he can not be discharged, and he will only grow more deconditioned. The MRI of his left foot with contrast did not show any specific concerning abnormalities. His white count dropped from 10.1 to 8.1 on the vancomycin and Zosyn. His ESR and CRP are up. This makes me wonder if there is anything else inflammatory going on. I'm ordering a uric acid level to see whether gout is a possibility. (2) Hx of mitral valve repair Status: Chronic Response to Treatment: Stable Problem Text: c/w xarelto and plavix home meds (3) Hyperlipidemia Status: Chronic Response to Treatment: Stable Problem Text: c/w home meds (4) DVT prophylaxis Status: Acute Response to Treatment: Stable Problem Text: pt receiving xarelto plavix Plan/VTE VTE Prophylaxis Ordered?: Yes VS, I&O, 24H, Fishbone Vital Signs/I&O Vital Signs Date Time Temp Pulse Resp B/P (MAP) Pulse Ox O2 Delivery O2 Flow Rate FiO2 06/05/17 22:00 99.0 58 18 121/67 (85) 96 Room Air I&O- Last 24 Hours up to 6 AM 06/06/17 06:00 Intake Total 360 ml Output Total 1150 ml Balance -790 ml Laboratory Data 24H LABS Laboratory Tests 2 06/05/17 11:28: Immature Granulocyte % (Auto) 0.3H, White Blood Count 8.9, Red Blood Count 3.68L , Hemoglobin 11.6L, Hematocrit 33.2L, Mean Corpuscular Volume 90.2, Mean Corpuscular Hemoglobin 31.5, Mean Corpuscular Hemoglobin Concent 34.9, Red Cell Distribution Width 12.4, Platelet Count 215, Neutrophils (%) (Auto) 85.8H, Lymphocytes (%) (Auto) 6.1L, Monocytes (%) (Auto) 6.1H, Eosinophils (%) (Auto) 1.5, Basophils (%) (Auto) 0.2, Neutrophils # (Auto) 7.6, Lymphocytes # (Auto) 0.5L, Monocytes # (Auto) 0.5, Eosinophils # (Auto) 0.1, Basophils # (Auto) 0.0, Immature Granulocyte # (Auto) 0.0, Nucleated Red Blood Cells % (auto) 0.0, Anion Gap 10, Glomerular Filtration Rate > 60.0, Blood Urea Nitrogen 14, Creatinine 1.10, Sodium Level 139, Potassium Level 3.8, Chloride Level 107, Carbon Dioxide Level 22, Calcium Level 7.4L CBC/BMP Laboratory Tests 06/05/17 11:28 Red Blood Count 3.68 L, Mean Corpuscular Volume 90.2, Mean Corpuscular Hemoglobin 31.5, Mean Corpuscular Hemoglobin Concent 34.9, Red Cell Distribution Width 12.4, Neutrophils (%) (Auto) 85.8 H, Lymphocytes (%) (Auto) 6.1 L, Monocytes (%) (Auto) 6.1 H, Eosinophils (%) (Auto) 1.5, Basophils (%) ( Auto) 0.2, Neutrophils # (Auto) 7.6, Lymphocytes # (Auto) 0.5 L, Monocytes # ( Auto) 0.5, Eosinophils # (Auto) 0.1, Basophils # (Auto) 0.0, Calcium Level 7.4 L Microbiology Microbiology 06/01/17 Blood Culture - Preliminary, Resulted No Growth after 72 hours. All specime... 06/01/17 Blood Culture - Preliminary, Resulted No Growth after 72 hours. All specime... PAYTON AYERS DO Jun 06, 2017 00:03
[2017-06-06 06:00] VITALS: BP 122/68
[2017-06-06 06:59] LABS: BASO % 0.3 % (0.0-1.0); EOS # 0.3 10^3/uL (0.0-0.50); EOS % 2.9 % (0.0-3.0); IMMATURE GRANULOCYTE % 0.3 % (0-0); LYMPH # 0.9 10^3/uL (1.5-4.5); LYMPH % 9.3 % (24.0-44.0); MEAN CORPUSCULAR HEMOGLOBIN 31.6 pg (27.0-33.0); MEAN CORPUSCULAR HGB CONC 35.1 g/dl (32.0-36.5); MEAN CORPUSCULAR VOLUME 89.8 fl (80.0-96.0); MONO # 0.8 10^3/uL (0.0-0.8); MONO % 8.2 % (0.0-5.0); NEUTROPHILS # 7.3 10^3/uL (1.8-7.7); PLATELET COUNT, AUTOMATED 233 10^3/uL (150-450); RED CELL DISTRIBUTION WIDTH 12.4 % (11.5-14.5); WHITE BLOOD COUNT 9.2 10^3/uL (4.0-10.0)
[2017-06-06 07:36] LABS: ANION GAP 7 MEQ/L (8-16); BLOOD UREA NITROGEN 11 MG/DL (7-18); CALCIUM LEVEL 7.6 MG/DL (8.8-10.2); CARBON DIOXIDE LEVEL 23 MEQ/L (21-32); CHLORIDE LEVEL 109 MEQ/L (98-107); CREATININE FOR GFR 0.95 MG/DL (0.70-1.30); GLOMERULAR FILTRATION RATE > 60.0 (>35); GLUCOSE, FASTING 115 MG/DL (83-110); POTASSIUM SERUM 4.1 MEQ/L (3.5-5.1); SODIUM LEVEL 139 MEQ/L (136-145)
[2017-06-06] MEDS: SPIRONOLACTONE 12.5MG PER 1/2 TABLET PO SCH ×2 (08:06→21:18)
[2017-06-06] MEDS: AMIODARONE 200 MG TAB (PACERONE) PO SCH (08:06)
[2017-06-06] MEDS: MULTIVITAMINS/MINERALS THERAP 1 TAB PO SCH (08:06)
[2017-06-06] MEDS: CLOPIDOGREL 75 MG TAB PO SCH (08:06)
[2017-06-06] MEDS: DOXYCYCLINE HYCLATE 100 MG TAB PO SCH ×2 (08:06→21:19)
[2017-06-06] MEDS: FUROSEMIDE 40 MG TAB PO SCH (08:07)
[2017-06-06 14:00] VITALS: BP 126/66
[2017-06-06] MEDS: RIVAROXABAN 15 MG TAB (XARELTO) PO SCH (21:18)
[2017-06-06] MEDS: ATORVASTATIN 20 MG TAB PO SCH (21:19)
[2017-06-06 22:00] VITALS: BP 123/67
--- NOTE | 2017-06-07 02:11 | IPNPDOC ---
Subjective Date Seen The patient was seen on 06/06/17. Subjective Chief Complaint/HPI The patient is a 82-year-old male admitted with a reason for visit of cellulitis Events since last encounter Patient did not find the compression stocking useful for L lower extremity discomfort. He did not try the narcotic. He has slowly been more active with physical therapy. General: Reports: Chills Constitutional: Denies: Chills, Fever Pulmonary: Denies: Dyspnea, Cough Cardiovascular: Denies: Chest Pain, Palpitations Gastrointestinal: Denies: Nausea, Vomiting, Diarrhea, Constipation Psych: Reports: Anxiety Objective Physical Examination General Exam: Positive: Alert, Cooperative, No Acute Distress Eye Exam: Positive: Conjunctiva & lids normal, EOMI, Negative: Sclera icteric ENT Exam: Positive: Atraumatic, Mucous membr. moist/pink Neck Exam: Positive: Supple, Negative: Lymphadenopathy Chest Exam: Positive: Clear to auscultation, Normal air movement Heart Exam: Positive: Rate Normal, Normal S1, Normal S2, Murmurs (there is a soft 2/6 blowing midsystolic murmur noted at the left lower sternal border), Negative: Gallops, Rubs Abdomen Exam: Positive: Normal bowel sounds, Soft, Negative: Tenderness Extremity Exam: Positive: Tenderness (L foot when leg is dependent), Swelling ( only present when dependent), Other (dilation of veins in L leg visible when dependent, as well as erythema of foot) Skin Exam: Positive: Other skin issue (ecchymoses L medial malleolus) Neuro Exam: Positive: Normal Speech Psych Exam: Positive: Mood NL, Oriented x 3 Assessment /Plan Problems (1) Cellulitis of foot Status: Resolved Response to Treatment: Stable, Improving Discussed With: Patient Problem Text: 06/06 -- Again reviewed the risks of deconditioning. He is making strides with PT, but slowly. He may benefit from vascular procedure, but will need to have completed antibiotics first. As patient is anxious to do this, will order US to further eval for Sunday. Will try lidoderm patch for better pain relief. 06/05 -- briefly reviewed the risks of deconditioning. Encouraged to try medication or compression stockings to allow ambulation with less discomfort. Possibly he may benefit in the future from a vascular procedure, but current infection needs to have resolved. Switched to doxycycline. 06/04 -- Clinically appears to be resolving. Continue antibiotics. Encouraged patient to wear compression stocking to see if this helps with foot discomfort. Also encouraged him to try pain medication. If he can not ambulate and care for himself, he can not be discharged, and he will only grow more deconditioned. The MRI of his left foot with contrast did not show any specific concerning abnormalities. His white count dropped from 10.1 to 8.1 on the vancomycin and Zosyn. His ESR and CRP are up. This makes me wonder if there is anything else inflammatory going on. I'm ordering a uric acid level to see whether gout is a possibility. (2) Hx of mitral valve repair Status: Chronic Response to Treatment: Stable Problem Text: c/w xarelto and plavix home meds (3) Hyperlipidemia Status: Chronic Response to Treatment: Stable Problem Text: c/w home meds (4) DVT prophylaxis Status: Acute Response to Treatment: Stable Problem Text: pt receiving xarelto plavix Plan/VTE VTE Prophylaxis Ordered?: Yes VS, I&O, 24H, [facility] Vital Signs/I&O Vital Signs Date Time Temp Pulse Resp B/P (MAP) Pulse Ox O2 Delivery O2 Flow Rate FiO2 06/06/17 22:00 98.7 61 14 123/67 (85) 98 Room Air Laboratory Data 24H LABS Laboratory Tests 2 06/06/17 06:39: Immature Granulocyte % (Auto) 0.3H, White Blood Count 9.2, Red Blood Count 3.74L , Hemoglobin 11.8L, Hematocrit 33.6L, Mean Corpuscular Volume 89.8, Mean Corpuscular Hemoglobin 31.6, Mean Corpuscular Hemoglobin Concent 35.1, Red Cell Distribution Width 12.4, Platelet Count 233, Neutrophils (%) (Auto) 79.0H, Lymphocytes (%) (Auto) 9.3L, Monocytes (%) (Auto) 8.2H, Eosinophils (%) (Auto) 2.9, Basophils (%) (Auto) 0.3, Neutrophils # (Auto) 7.3, Lymphocytes # (Auto) 0.9L, Monocytes # (Auto) 0.8, Eosinophils # (Auto) 0.3, Basophils # (Auto) 0.0, Immature Granulocyte # (Auto) 0.0, Nucleated Red Blood Cells % (auto) 0.0, Anion Gap 7L, Glomerular Filtration Rate > 60.0, Blood Urea Nitrogen 11, Creatinine 0.95, Sodium Level 139, Potassium Level 4.1, Chloride Level 109H, Carbon Dioxide Level 23, Calcium Level 7.6L CBC/BMP Laboratory Tests 06/06/17 06:39 Red Blood Count 3.74 L, Mean Corpuscular Volume 89.8, Mean Corpuscular Hemoglobin 31.6, Mean Corpuscular Hemoglobin Concent 35.1, Red Cell Distribution Width 12.4, Neutrophils (%) (Auto) 79.0 H, Lymphocytes (%) (Auto) 9.3 L, Monocytes (%) (Auto) 8.2 H, Eosinophils (%) (Auto) 2.9, Basophils (%) ( Auto) 0.3, Neutrophils # (Auto) 7.3, Lymphocytes # (Auto) 0.9 L, Monocytes # ( Auto) 0.8, Eosinophils # (Auto) 0.3, Basophils # (Auto) 0.0, Calcium Level 7.6 L Microbiology Microbiology 06/01/17 Blood Culture - Final, Complete NO GROWTH AFTER 5 DAYS 06/01/17 Blood Culture - Final, Complete NO GROWTH AFTER 5 DAYS PAYTON AYERS DO Jun 07, 2017 02:11
[2017-06-07 06:00] VITALS: BP 133/72
[2017-06-07 06:03] LABS: BASO % 0.2 % (0.0-1.0); EOS # 0.2 10^3/uL (0.0-0.50); EOS % 1.9 % (0.0-3.0); IMMATURE GRANULOCYTE % 0.7 % (0-0); LYMPH # 0.7 10^3/uL (1.5-4.5); LYMPH % 6.8 % (24.0-44.0); MEAN CORPUSCULAR HEMOGLOBIN 31.6 pg (27.0-33.0); MEAN CORPUSCULAR HGB CONC 35.2 g/dl (32.0-36.5); MEAN CORPUSCULAR VOLUME 89.6 fl (80.0-96.0); MONO # 0.9 10^3/uL (0.0-0.8); MONO % 8.3 % (0.0-5.0); NEUTROPHILS # 8.8 10^3/uL (1.8-7.7); NEUTROPHILS % 82.1 % (36.0-66.0); PLATELET COUNT, AUTOMATED 258 10^3/uL (150-450); RED CELL DISTRIBUTION WIDTH 12.5 % (11.5-14.5); WHITE BLOOD COUNT 10.7 10^3/uL (4.0-10.0)
[2017-06-07 06:29] LABS: ANION GAP 9 MEQ/L (8-16); BLOOD UREA NITROGEN 15 MG/DL (7-18); CALCIUM LEVEL 7.7 MG/DL (8.8-10.2); CARBON DIOXIDE LEVEL 23 MEQ/L (21-32); CHLORIDE LEVEL 108 MEQ/L (98-107); CREATININE FOR GFR 0.92 MG/DL (0.70-1.30); GLOMERULAR FILTRATION RATE > 60.0 (>35); GLUCOSE, FASTING 114 MG/DL (83-110); POTASSIUM SERUM 3.9 MEQ/L (3.5-5.1); SODIUM LEVEL 140 MEQ/L (136-145)
[2017-06-07] MEDS: LIDOCAINE 5% (LIDODERM) PATCH TD SCH (09:00)
[2017-06-07] MEDS: CLOPIDOGREL 75 MG TAB PO SCH (09:05)
[2017-06-07] MEDS: DOXYCYCLINE HYCLATE 100 MG TAB PO SCH ×2 (09:05→20:45)
[2017-06-07] MEDS: SPIRONOLACTONE 12.5MG PER 1/2 TABLET PO SCH ×2 (09:05→20:44)
[2017-06-07] MEDS: FUROSEMIDE 40 MG TAB PO SCH (09:05)
[2017-06-07] MEDS: MULTIVITAMINS/MINERALS THERAP 1 TAB PO SCH (09:05)
[2017-06-07] MEDS: AMIODARONE 200 MG TAB (PACERONE) PO SCH (09:05)
--- NOTE | 2017-06-07 11:36 | IPNPDOC ---
Subjective Date Seen The patient was seen on 06/07/17. Subjective Chief Complaint/HPI The patient is a 82-year-old male admitted with a reason for visit of Skin Issue. Events since last encounter Patient states LLE cellulitis and erythema are Slowly improving. C/o marina discoloration to LLE when leg is dependent. Constitutional: Denies: Chills, Fever, Night Sweats Skin: Denies: Rash, Lesions, Breakdown Pulmonary: Denies: Dyspnea, Cough Cardiovascular: Reports: Edema (LLE), Denies: Chest Pain, Palpitations, Orthopnea, Paroxysmal Noc. Dyspnea, Lt Headedness Gastrointestinal: Denies: Nausea, Vomiting, Abdominal Pain, Diarrhea, Constipation Objective Physical Examination General Exam: Positive: Alert, Cooperative, No Acute Distress Eye Exam: Positive: Conjunctiva & lids normal, EOMI, Negative: Sclera icteric ENT Exam: Positive: Atraumatic, Mucous membr. moist/pink Neck Exam: Positive: Supple, Negative: Lymphadenopathy Chest Exam: Positive: Clear to auscultation, Normal air movement Heart Exam: Positive: Rate Normal, Normal S1, Normal S2, Murmurs (there is a soft 2/6 blowing midsystolic murmur noted at the left lower sternal border), Negative: Gallops, Rubs Abdomen Exam: Positive: Normal bowel sounds, Soft, Negative: Tenderness Extremity Exam: Positive: Tenderness (L foot when leg is dependent), Swelling ( only present when dependent), Other (dilation of veins in L leg visible when dependent, as well as erythema of foot) Skin Exam: Positive: Other skin issue (ecchymoses L medial malleolus) Neuro Exam: Positive: Normal Speech Psych Exam: Positive: Mood NL, Oriented x 3 Assessment /Plan Problems (1) Cellulitis of foot Status: Resolved Response to Treatment: Stable, Improving Discussed With: Patient Problem Text: 06/07/2017: declines pain medication to assist with mobility. Eval ESR and CRP today. US LLE to r/o venous anomaly. 06/06 -- Again reviewed the risks of deconditioning. He is making strides with PT, but slowly. He may benefit from vascular procedure, but will need to have completed antibiotics first. As patient is anxious to do this, will order US to further eval for Sunday. Will try lidoderm patch for better pain relief. 06/05 -- briefly reviewed the risks of deconditioning. Encouraged to try medication or compression stockings to allow ambulation with less discomfort. Possibly he may benefit in the future from a vascular procedure, but current infection needs to have resolved. Switched to doxycycline. 06/04 -- Clinically appears to be resolving. Continue antibiotics. Encouraged patient to wear compression stocking to see if this helps with foot discomfort. Also encouraged him to try pain medication. If he can not ambulate and care for himself, he can not be discharged, and he will only grow more deconditioned. The MRI of his left foot with contrast did not show any specific concerning abnormalities. His white count dropped from 10.1 to 8.1 on the vancomycin and Zosyn. His ESR and CRP are up. This makes me wonder if there is anything else inflammatory going on. I'm ordering a uric acid level to see whether gout is a possibility. (2) Hx of mitral valve repair Status: Chronic Response to Treatment: Stable Problem Text: c/w xarelto and plavix home meds (3) Hyperlipidemia Status: Chronic Response to Treatment: Stable Problem Text: c/w home meds (4) DVT prophylaxis Status: Acute Response to Treatment: Stable Problem Text: pt receiving xarelto plavix (5) Aortic stenosis Problem Text: recent cardiac intervention for aortic stenosis at [facility]. IS due for repeat dobutamine stress echo. Patient requesting to be done while inpatient. Patient is asymptomatic. Not an acute need. May arrange locally as an outpatient. Plan/VTE VTE Prophylaxis Ordered?: Yes VS, I&O, 24H, Fishbone Vital Signs/I&O Vital Signs Date Time Temp Pulse Resp B/P (MAP) Pulse Ox O2 Delivery O2 Flow Rate FiO2 06/07/17 06:00 98.3 61 14 133/72 (92) 99 Room Air Laboratory Data 24H LABS Laboratory Tests 2 06/07/17 05:47: Immature Granulocyte % (Auto) 0.7H, White Blood Count 10.7H, Red Blood Count 3.74L, Hemoglobin 11.8L, Hematocrit 33.5L, Mean Corpuscular Volume 89.6, Mean Corpuscular Hemoglobin 31.6, Mean Corpuscular Hemoglobin Concent 35.2, Red Cell Distribution Width 12.5, Platelet Count 258, Neutrophils (%) (Auto) 82.1H, Lymphocytes (%) (Auto) 6.8L, Monocytes (%) (Auto) 8.3H, Eosinophils (%) (Auto) 1.9, Basophils (%) (Auto) 0.2, Neutrophils # (Auto) 8.8H, Lymphocytes # (Auto) 0.7L, Monocytes # (Auto) 0.9H, Eosinophils # (Auto) 0.2, Basophils # (Auto) 0.0 , Immature Granulocyte # (Auto) 0.1H, Nucleated Red Blood Cells % (auto) 0.0, Anion Gap 9, Glomerular Filtration Rate > 60.0, Blood Urea Nitrogen 15, Creatinine 0.92, Sodium Level 140, Potassium Level 3.9, Chloride Level 108H, Carbon Dioxide Level 23, Calcium Level 7.7L CBC/BMP Laboratory Tests 06/07/17 05:47 Red Blood Count 3.74 L, Mean Corpuscular Volume 89.6, Mean Corpuscular Hemoglobin 31.6, Mean Corpuscular Hemoglobin Concent 35.2, Red Cell Distribution Width 12.5, Neutrophils (%) (Auto) 82.1 H, Lymphocytes (%) (Auto) 6.8 L, Monocytes (%) (Auto) 8.3 H, Eosinophils (%) (Auto) 1.9, Basophils (%) ( Auto) 0.2, Neutrophils # (Auto) 8.8 H, Lymphocytes # (Auto) 0.7 L, Monocytes # ( Auto) 0.9 H, Eosinophils # (Auto) 0.2, Basophils # (Auto) 0.0, Calcium Level 7.7 L Microbiology Microbiology 06/01/17 Blood Culture - Final, Complete NO GROWTH AFTER 5 DAYS 06/01/17 Blood Culture - Final, Complete NO GROWTH AFTER 5 DAYS Jaqueline Valdovinos [facility] Jun 07, 2017 11:36
[2017-06-07 12:13] LABS: ERYTHROCYTE SEDIMENTATION RATE 63 mm/hr (0-20)
[2017-06-07 14:00] VITALS: BP 126/74
--- NOTE | 2017-06-07 16:30 | REP ---
Left lower extremity duplex venous ultrasound with reflux evaluation: History: Evaluate for venous insufficiency. Findings: The deep veins are anechoic and fully compressible from the groin to the popliteal fossa in the left lower extremity on two-dimensional scanning. There is no evidence of DVT on color Doppler or spectral Doppler interrogation. Reflux evaluation: No venous reflux is observed in the left lower extremity. The greater saphenous vein measures 6.8 mm in AP dimension proximally at the saphenofemoral junction, 4.3 mm at midthigh, and 4.1 mm in AP dimension at the knee. The lesser saphenous vein measures 5.7 mm in AP dimension. Impression: No significant reflux is seen. Signed by David Roberts MD 06/07/2017 05:13 P
[2017-06-07] MEDS: RIVAROXABAN 15 MG TAB (XARELTO) PO SCH (20:44)
[2017-06-07] MEDS: AMOXICILLIN 875 MG TAB PO SCH (20:45)
[2017-06-07] MEDS: ATORVASTATIN 20 MG TAB PO SCH (20:45)
[2017-06-07] MEDS ORDERED: **NOTE PATIENT COMMENT** MISC XX SCH (21:00)
[2017-06-07 22:00] VITALS: BP 129/69
[2017-06-08 06:00] VITALS: BP 129/70
[2017-06-08 06:49] LABS: BASO % 0.2 % (0.0-1.0); EOS # 0.2 10^3/uL (0.0-0.50); EOS % 1.5 % (0.0-3.0); IMMATURE GRANULOCYTE % 0.6 % (0-0); LYMPH # 0.7 10^3/uL (1.5-4.5); MEAN CORPUSCULAR HEMOGLOBIN 31.7 pg (27.0-33.0); MEAN CORPUSCULAR HGB CONC 35.5 g/dl (32.0-36.5); MEAN CORPUSCULAR VOLUME 89.4 fl (80.0-96.0); MONO # 0.8 10^3/uL (0.0-0.8); MONO % 7.7 % (0.0-5.0); NEUTROPHILS # 8.2 10^3/uL (1.8-7.7); PLATELET COUNT, AUTOMATED 252 10^3/uL (150-450); RED CELL DISTRIBUTION WIDTH 12.4 % (11.5-14.5); WHITE BLOOD COUNT 9.9 10^3/uL (4.0-10.0)
[2017-06-08 07:06] LABS: ANION GAP 7 MEQ/L (8-16); BLOOD UREA NITROGEN 14 MG/DL (7-18); CALCIUM LEVEL 7.7 MG/DL (8.8-10.2); CARBON DIOXIDE LEVEL 25 MEQ/L (21-32); CHLORIDE LEVEL 107 MEQ/L (98-107); CREATININE FOR GFR 0.91 MG/DL (0.70-1.30); GLOMERULAR FILTRATION RATE > 60.0 (>35); GLUCOSE, FASTING 113 MG/DL (83-110); POTASSIUM SERUM 3.8 MEQ/L (3.5-5.1); SODIUM LEVEL 139 MEQ/L (136-145)
[2017-06-08] MEDS: LIDOCAINE 5% (LIDODERM) PATCH TD SCH (09:00)
[2017-06-08] MEDS: DOXYCYCLINE HYCLATE 100 MG TAB PO SCH (09:08)
[2017-06-08] MEDS: CLOPIDOGREL 75 MG TAB PO SCH (09:08)
[2017-06-08] MEDS: AMOXICILLIN 875 MG TAB PO SCH (09:09)
[2017-06-08] MEDS: AMIODARONE 200 MG TAB (PACERONE) PO SCH (09:09)
[2017-06-08] MEDS: FUROSEMIDE 40 MG TAB PO SCH (09:09)
[2017-06-08] MEDS: MULTIVITAMINS/MINERALS THERAP 1 TAB PO SCH (09:09)
[2017-06-08] MEDS: SPIRONOLACTONE 12.5MG PER 1/2 TABLET PO SCH (09:09)
[2017-06-08] MEDS ORDERED: AMOX875T PO (11:29)
--- NOTE | 2017-06-08 15:49 | DSES ---
DATE OF ADMISSION: 06/01/2017 DATE OF DISCHARGE: 06/08/2017 ATTENDING PHYSICIAN: Dr. Leydi Corona PRIMARY CARE PHYSICIAN: Dr. 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 Patient noted some significant swelling and pain in his left foot. Thought maybe he had twisted it. Attended with some conservative measures with minimal relief. Patient was seen in his primary care physician's office after it becoming hot and red. Was instructed to go to orthopedics and have an MRI prior. The results were negative for osteomyelitis, and patient was given Keflex. Patient presented to the emergency department (ED) due to worsening pain, difficulty ambulating, progressive swelling, and erythema. Patient was subsequently admitted to the family medicine service and treated for cellulitis of the left foot. HOSPITAL COURSE: Patient had a repeat MRI as well as foot x-ray, which both proved negative for osteomyelitis. Patient's white blood cell count remained stable throughout his hospitalization, and patient has been afebrile. Patient has had significant difficulty with ambulation during his hospitalization until the last 2 days, of which he has been able to ambulate back to his baseline capabilities. Patient was initially placed on doxycycline hyclate on June 01. He finished a 7-day course of that and was transitioned actually over the amoxicillin 875 twice a day approximately 36 hours ago and has seemed to continue to improve. Patient has continually declined medications for pain. He has declined compression stockings and thromboembolic deterrents (TEDs). IMAGING: Includes already-stated MRI and x-ray of the foot. Patient also is status post a lower extremity duplex, which was negative for reflux. Today patient is able to ambulate. He has been cleared by physical therapy. States his pain is significantly improved. The erythema has almost completely receded beyond the markings of his foot. PHYSICAL EXAMINATION: VITAL SIGNS: Stable. He is afebrile. Labs show stable white count with stable hemoglobin and hematocrit. Electrolytes are stable. Renal function is good with a creatinine of 0.91. HEENT: Neck is supple without lymphadenopathy or jugular venous distention (JVD). CARDIOVASCULAR: Heart rate and rhythm are regular. PULMONARY: Lungs are clear. ABDOMEN: Soft and nontender. Bilateral lower extremities: Right lower extremity is without any incident. Left lower extremity does show some skin markings. There is some receding erythema. He has some mild swelling to the region; however, no active edema or puffiness. When patient does place his foot in a dependent position it is visualized to have a significant marina and purplish discoloration; however, it is minimally tender. ASSESSMENT: DISCHARGE DIAGNOSIS: 1. Cellulitis of the left foot. 2. Obvious vascular abnormality to the left lower extremity. SECONDARY DIAGNOSES: 1. Status post mitral valve repair 2 months ago. Patient has a followup appointment at [facility] for a dobutamine stress echo and followup within the next few weeks. 2. History of prostate cancer. 3. Waldenstrom's macroglobulinemia. 4. Hypertension. 5. Hyperlipidemia. PLAN: Patient will be discharged home. Diet is 2-gram sodium. Activity is as tolerated. He will followup with his primary care physician (PCP), Dr. Jose Antonio Umanzor, within the next 5 days. Patient may want to consider a vascular consult post hospitalization for further testing and evaluation of his left leg difficulties. Patient is discharged in stable and satisfactory condition with no further questions at time of discharge.
== END 2017-06-08 12:36 | disposition home or self-care (01) | DRG 603 ==
LOC: M ED 15:37 → M ED INP 22:08 → M MS5PR 06-02 01:34
PROVIDERS: ADMIT Internal Medicine; ATTEND Family Medicine
DX: L03.116 Cellulitis of left lower limb (principal); C79.31 Secondary malignant neoplasm of brain; I10 Essential (primary) hypertension; E78.5 Hyperlipidemia, unspecified; C88.0 Waldenstrom macroglobulinemia; Z85.46 Personal history of malignant neoplasm of prostate; Z79.02 Long term (current) use of antithrombotics/antiplatelets; Z79.01 Long term (current) use of anticoagulants; Z79.899 Other long term (current) drug therapy; Z92.21 Personal history of antineoplastic chemotherapy

== ENCOUNTER → 2018-02-22 | Outpatient (REF) | payer MEDICARE ==
[2018-02-22 11:57] LABS: ANION GAP 9 MEQ/L (8-16); BLOOD UREA NITROGEN 44 MG/DL (7-18); CALCIUM LEVEL 8.7 MG/DL (8.8-10.2); CARBON DIOXIDE LEVEL 29 MEQ/L (21-32); CHLORIDE LEVEL 105 MEQ/L (98-107); CREATININE FOR GFR 1.48 MG/DL (0.70-1.30); GLOMERULAR FILTRATION RATE 48.4 (>35); GLUCOSE, FASTING 124 MG/DL (70-100); POTASSIUM SERUM 3.2 MEQ/L (3.5-5.1); SODIUM LEVEL 143 MEQ/L (136-145); URIC ACID 9.4 MG/DL (3.5-7.2)
== END ==
LOC: M SFHCCLAY 08:07
DX: Z95.2 Presence of prosthetic heart valve (principal)
CPT/HCPCS: 84550

== ENCOUNTER → 2018-03-28 | Outpatient (REF) | payer MEDICARE ==
[2018-03-28 19:29] LABS: ALBUMIN 3.9 GM/DL (3.2-5.2); ALBUMIN/GLOBULIN RATIO 1.26 (1.00-1.93); ALKALINE PHOSPHATASE 149 U/L (45-117); ALT/SGPT 25 U/L (12-78); AST/SGOT 16 U/L (7-37); BILIRUBIN,DIRECT 0.2 MG/DL (0.0-0.2); BILIRUBIN,TOTAL 0.9 MG/DL (0.2-1.0)
[2018-03-28 19:41] LABS: PROLACTIN 7.7 NG/ML (2.1-17.7); TOTAL 25(OH) VITAMIN D 23.8 NG/ML (30.0-100.0)
== END ==
LOC: M LABDRAWC 17:24
DX: C61 Malignant neoplasm of prostate (principal); Z51.81 Encounter for therapeutic drug level monitoring; Z79.899 Other long term (current) drug therapy; R35.8 Other polyuria; E55.9 Vitamin D deficiency, unspecified

== ENCOUNTER → 2018-03-28 | Outpatient (REF) | payer MEDICARE ==
[2018-03-28 19:07] LABS: ANION GAP 9 MEQ/L (8-16); BLOOD UREA NITROGEN 29 MG/DL (7-18); CALCIUM LEVEL 8.6 MG/DL (8.8-10.2); CARBON DIOXIDE LEVEL 27 MEQ/L (21-32); CHLORIDE LEVEL 105 MEQ/L (98-107); CREATININE FOR GFR 1.43 MG/DL (0.70-1.30); GLOMERULAR FILTRATION RATE 50.3 (>35); GLUCOSE, FASTING 114 MG/DL (70-100); POTASSIUM SERUM 3.5 MEQ/L (3.5-5.1); SODIUM LEVEL 141 MEQ/L (136-145)
== END ==
LOC: M LABDRAWC 17:31
DX: I35.0 Nonrheumatic aortic (valve) stenosis (principal); C61 Malignant neoplasm of prostate; Z51.81 Encounter for therapeutic drug level monitoring; Z79.899 Other long term (current) drug therapy; R35.8 Other polyuria; E55.9 Vitamin D deficiency, unspecified; Z95.3 Presence of xenogenic heart valve; Z95.4 Presence of other heart-valve replacement
CPT/HCPCS: 84146